=== PATIENT | male | born 1975 | race Caucasian/White ===

== ENCOUNTER → 2017-01-04 | Outpatient (CLI) | payer BC ==
[~2017-01-04] MED LIST: ANTIVERT 25MG25 MG PO; CALCIUM1 CAP PO; DUO-KAPS1 CAP PO; FLOMAX 0.40.4 MG/CAP PO; IBU800 M1 PO; LEVAQUIN 5500 MG/TA1 PO; NATURE'S BLE1000 MCG PO; PERCOCET 325 MG1 TA2 PO; VALIUM 2MG T2 MG/TAB PO; VITAMIN B122500 MCG PO; VITAMIN D2000 I1 PO; ZOFRAN 4MG T4 MG/TAB PO
[2017-01-04 08:55] LABS: BASO % 0.4 % (0.0-2.0); EOS # 0.1 (0.0-0.7); EOS % 1.2 % (0-4.0); GRAN # 4.6 (1.4-6.5); GRAN % 67.1 % (42.2-75.2); HEMATOCRIT 47.2 % (42.0-52.0); HEMOGLOBIN 16.1 g/dl (13.5-18.0); LYMPH # 1.6 (1.2-3.4); LYMPH % 23.3 % (20.0-51.0); MEAN CELL VOLUME 90 fl (80.0-100.0); MEAN CORPUSCULAR HEMOGLOBIN 31 pg (27.0-31.0); MEAN CORPUSCULAR HGB CONC 34 g/dl (33.0-37.0); MEAN PLATELET VOLUME 11.1 fl (7.4-10.4); MONO # 0.5 (0.1-0.6); MONO % 7.7 % (1.7-9.3); PLATELET COUNT 217 K/mm3 (130-400); RED BLOOD COUNT 5.23 M/mm3 (4.20-5.60); REDCELL DISTRIBUTION WIDTH-CV 12.4 % (11.5-14.5); WHITE BLOOD COUNT 6.9 K/mm3 (4.8-10.8)
[2017-01-04 09:09] LABS: ALBUMIN 4.4 gm/dL (3.5-5.0); BILIRUBIN,TOTAL 1.5 mg/dL (0.0-1.0); CALCIUM 9.3 mg/dL (8.4-10.2); CREATININE, serum 0.78 mg/dL (0.66-1.25); POTASSIUM 4.1 mmol/L (3.4-5.0); TOTAL PROTEIN 6.9 gm/dL (6.4-8.2)
[2017-01-06 12:23] LABS: .COPPER,S 0.86 mcg/mL (())
== END ==
LOC: COL.LAB 07:56
PROVIDERS: Surgery
DX: E53.8 Deficiency of other specified B group vitamins (principal); E58 Dietary calcium deficiency; Z98.890 Other specified postprocedural states; Z98.84 Bariatric surgery status

== ENCOUNTER → 2017-06-22 | Outpatient (CLI) | payer BC | LOC: MHCPAIN 08:09 | DX: G89.29 Other chronic pain (principal); M47.27 Other spondylosis with radiculopathy, lumbosacral region | CPT/HCPCS: G0463 ==

== ENCOUNTER → 2017-06-22 | Outpatient (CLI) | payer BC | LOC: COL.RAD 09:06 | DX: M43.16 Spondylolisthesis, lumbar region (principal) ==

== ENCOUNTER → 2022-05-10 | Outpatient (CLI) | payer BC | LOC: COL.RAD 08:05 | DX: H81.09 Meniere's disease, unspecified ear (principal) | CPT/HCPCS: A9575 ==